=== PATIENT | male | born 1930 | race Caucasian/White ===

== ENCOUNTER 2016-08-15 18:21 | Inpatient (IN) | payer OTHER, MEDICARE ==
[~2016-08-15] VITALS: Ht 180.3 cm; Wt 66.2 kg
[~2016-08-15 18:21] MED LIST: ADVAIR 100/501 DISK IH; AMLODIPINE BESYL5 MG PO; CENTRUM MULTIG80 MCG PO; COZAAR50 MG PO; DOCUSATE SODIU100 MG PO; FLOMAX0.4 MG PO; LO-DOSE ASPIRIN81 M2 PO; NORVASC5 MG PO; TRICOR145 MG PO
[2016-08-15 19:22] LABS: HEMATOCRIT 36.3 % (38.0-50.0); MCH 29.9 PG (29.0-34.0); MCHC 33.1 G/DL (30.0-36.0); MCV 90.5 FL (86-99); MEAN PLAT.VOLUME 10.3 uM^3 (9.0-12.4); PLATELET COUNT 269 K/uL (156-360); RBC DIS.WIDTH-CV 14.6 % (11.8-14.6); RBC DIS.WIDTH-SD 46.8 % (39-53); RED BLOOD COUNT 4.01 M/uL (4.00-5.50); WHITE BLOOD COUNT 9.8 K/uL (4.1-10.2)
[2016-08-15 19:32] LABS: CHLORIDE 104 mEq/L (99-109); SODIUM 141 mEq/L (136-147)
[2016-08-15 19:33] LABS: GLUCOSE 111 mg/dL (70-99)
[2016-08-15 19:35] LABS: ANION GAP 14 MEQ/L (2-14)
[2016-08-15 19:37] LABS: GFR ESTIMATE (CALCULATED) 51 mL/min/
[2016-08-15 19:38] LABS: TROP-I INTERPRETATION NEGATIVE; UREA NITROGEN (BUN) 20 mg/dL (9-23)
[2016-08-15] MEDS ORDERED: AMLODIPINE BESYL5 MG PO (20:12)
[2016-08-15] MEDS ORDERED: LASIX40 MG PO (20:13)
[2016-08-15] MEDS ORDERED: COZAAR25 MG PO (22:52)
[2016-08-15] MEDS ORDERED: LOPRESSOR25 MG PO (22:53)
[2016-08-16 03:29] VITALS: BP 164/81
[2016-08-16 04:58] LABS: CHLORIDE 102 mEq/L (99-109); POTASSIUM 3.7 mEq/L (3.7-5.4); SODIUM 140 mEq/L (136-147)
[2016-08-16 04:59] LABS: GLUCOSE 96 mg/dL (70-99)
[2016-08-16 05:01] LABS: ANION GAP 10 MEQ/L (2-14)
[2016-08-16 05:03] LABS: GFR ESTIMATE (CALCULATED) 51 mL/min/
[2016-08-16 05:04] LABS: UREA NITROGEN (BUN) 21 mg/dL (9-23)
[2016-08-16 05:10] LABS: TROP-I INTERPRETATION NEGATIVE
[2016-08-16 05:31] LABS: HDL CHOLESTEROL 44 MG/DL (Desirable>=40); LDL CHOLESTEROL 67 mg/dL (Desirable<100); NON-HDL CHOLESTEROL 82 mg/dL (Desirable<160); TOTAL CHOLESTEROL 126 mg/dL (Desirable<200); TRIGLYCERIDES 75 MG/DL (Normal: <150)
[2016-08-16 11:32] VITALS: BP 136/68
[2016-08-16 12:39] LABS: TROP-I INTERPRETATION NEGATIVE; TROPONIN-I 0.25 ng/mL (0.0-0.30)
[2016-08-16 16:00] VITALS: BP 131/64
[2016-08-16 19:33] LABS: TROP-I INTERPRETATION NEGATIVE; TROPONIN-I 0.21 ng/mL (0.0-0.30)
[2016-08-16 19:35] VITALS: BP 140/77
[2016-08-16 23:31] VITALS: BP 142/76
[2016-08-17 03:18] LABS: CHLORIDE 100 mEq/L (99-109); POTASSIUM 3.5 mEq/L (3.7-5.4); SODIUM 140 mEq/L (136-147)
[2016-08-17 03:20] LABS: GLUCOSE 90 mg/dL (70-99)
[2016-08-17 03:21] LABS: ANION GAP 9 MEQ/L (2-14)
[2016-08-17 03:24] LABS: GFR ESTIMATE (CALCULATED) 47 mL/min/
[2016-08-17 03:25] LABS: UREA NITROGEN (BUN) 27 mg/dL (9-23)
[2016-08-17 03:31] LABS: TROP-I INTERPRETATION NEGATIVE; TROPONIN-I 0.18 ng/mL (0.0-0.30)
[2016-08-17 03:44] VITALS: BP 139/76
[2016-08-17 07:58] VITALS: BP 159/75
[2016-08-17 11:19] LABS: TROP-I INTERPRETATION NEGATIVE; TROPONIN-I 0.15 ng/mL (0.0-0.30)
[2016-08-17 12:48] LABS: ANTI-NUCLEAR AB SCRN/RFLX(ANA) NONREACTIVE (NONREACTIVE); SCL-70 (SCLERODERMA) ANTIBODY 19 U/mL (0-99)
[2016-08-19 13:49] LABS: Neutrophil Cytoplasmic Aby Negative (Negative)
== END 2016-08-17 13:38 | disposition home or self-care (01) | DRG 292 ==
LOC: EME 18:21 → 4EAST 22:12 → EDOF 22:12 → 4EAST 08-16 03:10
PROVIDERS: Emergency Medicine; Internal Medicine; Internal Medicine Pulmonary Disease
DX: I50.9 Heart failure, unspecified (principal); J90 Pleural effusion, not elsewhere classified; I35.0 Nonrheumatic aortic (valve) stenosis; E78.5 Hyperlipidemia, unspecified; J98.4 Other disorders of lung; I27.2 Other secondary pulmonary hypertension; F17.210 Nicotine dependence, cigarettes, uncomplicated; I10 Essential (primary) hypertension; F10.10 Alcohol abuse, uncomplicated; N40.0 Benign prostatic hyperplasia without lower urinary tract symptoms; R09.02 Hypoxemia; R09.89 Other specified symptoms and signs involving the circulatory and respiratory systems; Z79.82 Long term (current) use of aspirin; Z95.0 Presence of cardiac pacemaker; Z82.49 Family history of ischemic heart disease and other diseases of the circulatory system; Z82.3 Family history of stroke
CPT/HCPCS: 71020; 80048; 80061; 83880; 84484; 85027; 86021 90; 86038; 86235; 86430; 93005; 94002; 94760; 94799; 99281; 99285; J1940

== ENCOUNTER 2016-08-24 10:33 | Inpatient (IN) | payer OTHER, MEDICARE ==
[~2016-08-24] VITALS: Ht 177.8 cm; Wt 68.4 kg
[2016-08-24] VITALS (22 sets, daily range): BP systolic 108–133; BP diastolic 45–83
[~2016-08-24 10:33] MED LIST changes: +COZAAR25 MG PO; +LASIX40 MG PO; +LOPRESSOR25 MG PO
[2016-08-24 11:19] LABS: BASE EXCESS -4.5 mEq/L (-3 to +3); BICARBONATE 17.1 mEq/L (22-26); COMMENTS - BLOOD GASES NAC+; DEVICE NC; O2 FLOW 2 L/MIN; PCO2 23 mm Hg (35-45); PO2 130 mm Hg (80-100); SITE RR; TOTAL RESP RATE 34 resp/min; pH 7.48 (7.35-7.45)
[2016-08-24 12:19] LABS: INTER. NORMALIZED RATIO 1.4; PROTHROMBIN TIME 14.8 (9.2-11.2); PTT 25.5 (25-32)
[2016-08-24 12:24] LABS: CHLORIDE 96 mEq/L (99-109); POTASSIUM 3.7 mEq/L (3.7-5.4); SODIUM 136 mEq/L (136-147)
[2016-08-24 12:26] LABS: GLUCOSE 154 mg/dL (70-99)
[2016-08-24 12:28] LABS: ANION GAP 27 MEQ/L (2-14); TOTAL BILIRUBIN 0.5 mg/dL (0.0-1.0)
[2016-08-24 12:30] LABS: ALKALINE PHOSPHATASE 30 IU/L (3-129); GFR ESTIMATE (CALCULATED) 25 mL/min/
[2016-08-24 12:31] LABS: UREA NITROGEN (BUN) 89 mg/dL (9-23)
[2016-08-24 12:35] LABS: TROP-I INTERPRETATION POSITIVE
[2016-08-24 12:36] LABS: TROPONIN-I 9.67 ng/mL (0.0-0.30)
[2016-08-24 12:49] LABS: EOSINOPHIL (%) 0 % (0-5); HEMATOCRIT 17.3 % (38.0-50.0); IMMATURE GRANULOCYTE (%) 0.4 % (0.0-0.7); IMMATURE GRANULOCYTE COUNT 0.1 K/uL; LYMPHOCYTE COUNT 1.3 K/uL (1.0-2.8); MCH 29.7 PG (29.0-34.0); MCHC 31.8 G/DL (30.0-36.0); MCV 94.1 FL (86-99); MEAN PLAT.VOLUME 12.4 uM^3 (9.0-12.4); MONOCYTE (%) 3.2 % (3-12); MONOCYTE COUNT 0.6 K/uL (0-0.8); NEUTROPHIL (%) 89.6 % (45-76); NEUTROPHIL COUNT 16.8 K/uL (1.8-6.4); PLATELET COUNT 361 K/uL (156-360); RBC DIS.WIDTH-CV 16.4 % (11.8-14.6); RBC DIS.WIDTH-SD 54.5 % (39-53); RED BLOOD COUNT 1.85 M/uL (4.00-5.50); WHITE BLOOD COUNT 18.7 K/uL (4.1-10.2)
[2016-08-24 13:22] LABS: HEMATOLOGY COMMENT 1 SMEAR COMPATIBLE; USER ID TLN
[2016-08-24 17:05] LABS: METH RESISTANT S AUREUS PCR NEGATIVE (NEGATIVE)
[2016-08-24 17:08] LABS: PROBE CHECK PASS; SPECIMEN PROCESSING CONTROL PASS
[2016-08-24 17:44] LABS: MAGNESIUM 2.3 mg/dL (1.3-2.7)
[2016-08-24 17:52] LABS: SALICYLATE < 5.0 MG/DL (15-30)
[2016-08-24 18:06] LABS: TROP-I INTERPRETATION POSITIVE
[2016-08-24 18:13] LABS: TROPONIN-I 17.08 ng/mL (0.0-0.30)
[2016-08-24 18:17] LABS: HEMATOCRIT 20.8 % (38.0-50.0); MCV 90.8 FL (86-99)
[2016-08-24 18:32] LABS: CREATINE KINASE 422 IU/L (1-294); TOTAL CK 422 IU/L (1-294)
[2016-08-25] VITALS (27 sets, daily range): BP systolic 102–135; BP diastolic 41–81
[2016-08-25 04:37] LABS: EOSINOPHIL (%) 0 % (0-5); HEMATOCRIT 26.9 % (38.0-50.0); IMMATURE GRANULOCYTE (%) 0.3 % (0.0-0.7); IMMATURE GRANULOCYTE COUNT 0.5 K/uL; LYMPHOCYTE COUNT 1.2 K/uL (1.0-2.8); MCH 29.9 PG (29.0-34.0); MCHC 35.3 G/DL (30.0-36.0); MONOCYTE (%) 8.5 % (3-12); MONOCYTE COUNT 1.5 K/uL (0-0.8); NEUTROPHIL (%) 84.4 % (45-76); NEUTROPHIL COUNT 14.8 K/uL (1.8-6.4); RBC DIS.WIDTH-CV 15.7 % (11.8-14.6); RBC DIS.WIDTH-SD 44.8 % (39-53); WHITE BLOOD COUNT 17.5 K/uL (4.1-10.2)
[2016-08-25 04:39] LABS: MCV 84.6 FL (86-99); RED BLOOD COUNT 3.18 M/uL (4.00-5.50)
[2016-08-25 04:44] LABS: CHLORIDE 98 mEq/L (99-109); POTASSIUM 3.3 mEq/L (3.7-5.4); SODIUM 138 mEq/L (136-147)
[2016-08-25 04:47] LABS: GLUCOSE 117 mg/dL (70-99)
[2016-08-25 04:48] LABS: ANION GAP 14 MEQ/L (2-14)
[2016-08-25 04:51] LABS: GFR ESTIMATE (CALCULATED) 26 mL/min/; UREA NITROGEN (BUN) 88 mg/dL (9-23)
[2016-08-25 04:53] LABS: CREATINE KINASE 513 IU/L (1-294); TOTAL CK 513 IU/L (1-294)
[2016-08-25 04:56] LABS: TROP-I INTERPRETATION POSITIVE
[2016-08-25 04:59] LABS: CK-MB 39.2 ng/mL (0.0-4.9); TROPONIN-I 35.62 ng/mL (0.0-0.30)
[2016-08-25 05:38] LABS: PLATELET COUNT UNABLE TO REPORT K/uL (156-360); USER ID SLU
[2016-08-25 11:34] LABS: HEMATOCRIT 27.2 % (38.0-50.0); MCV 84.7 FL (86-99)
[2016-08-25 11:55] LABS: CK-MB 32.2 ng/mL (0.0-4.9)
[2016-08-25 11:56] LABS: TROP-I INTERPRETATION POSITIVE; TROPONIN-I 32.32 ng/mL (0.0-0.30)
[2016-08-25 13:19] LABS: CREATINE KINASE 339 IU/L (1-294); TOTAL CK 339 IU/L (1-294)
[2016-08-25 18:38] LABS: HEMATOCRIT 29.3 % (38.0-50.0); MCV 86.9 FL (86-99)
[2016-08-26] VITALS (13 sets, daily range): BP systolic 100–126; BP diastolic 56–78
[2016-08-26 05:47] LABS: HEMATOCRIT 28.1 % (38.0-50.0); MCH 29.9 PG (29.0-34.0); MCHC 34.2 G/DL (30.0-36.0); MCV 87.5 FL (86-99); NRBC (%) 0.4 /100 WBC (0-0); RBC DIS.WIDTH-CV 17.2 % (11.8-14.6); RBC DIS.WIDTH-SD 51.7 % (39-53); RED BLOOD COUNT 3.21 M/uL (4.00-5.50); WHITE BLOOD COUNT 21.4 K/uL (4.1-10.2)
[2016-08-26 06:11] LABS: ANION GAP 13 MEQ/L (2-14); CHLORIDE 99 MEQ/L (99-109); GFR ESTIMATE (CALCULATED) 32 mL/min/; GLUCOSE 110 mg/dL (70-99); MAGNESIUM 2.3 mg/dl (1.3-2.7); POTASSIUM 3.7 MEQ/L (3.7-5.4); SAMPLE HEMOLYSIS CHECK 0; SAMPLE ICTERIC CHECK 0; SAMPLE LIPEMIA CHECK 0; SODIUM 141 MEQ/L (136-147); UREA NITROGEN (BUN) 71 mg/dL (9-23)
[2016-08-26 07:47] LABS: EOSINOPHIL (%) 0 % (0-5); HEMATOLOGY COMMENT 1 SMEAR COMPATIBLE; IMMATURE GRANULOCYTE (%) 0.4 % (0.0-0.7); IMMATURE GRANULOCYTE COUNT 0.1 K/uL; LYMPHOCYTE COUNT 1.7 K/uL (1.0-2.8); MEAN PLAT.VOLUME 11.7 uM^3 (9.0-12.4); MONOCYTE (%) 6.9 % (3-12); MONOCYTE COUNT 1.5 K/uL (0-0.8); NEUTROPHIL (%) 84.9 % (45-76); NEUTROPHIL COUNT 18.2 K/uL (1.8-6.4); PLAT.SUFFICIENCY ADEQUATE; PLATELET COUNT 224 K/uL (156-360)
[2016-08-27] VITALS (8 sets, daily range): BP systolic 108–125; BP diastolic 62–82
[2016-08-27 06:06] LABS: HEMATOCRIT 26.8 % (38.0-50.0); MCH 30.6 PG (29.0-34.0); MCV 90.2 FL (86-99); MEAN PLAT.VOLUME 11.6 uM^3 (9.0-12.4); NRBC (%) 0.2 /100 WBC (0-0); PLATELET COUNT 196 K/uL (156-360); RBC DIS.WIDTH-CV 17.7 % (11.8-14.6); RBC DIS.WIDTH-SD 52.3 % (39-53); RED BLOOD COUNT 2.97 M/uL (4.00-5.50); WHITE BLOOD COUNT 17.2 K/uL (4.1-10.2)
[2016-08-27 06:28] LABS: EOSINOPHIL (%) 0.1 % (0-5); IMMATURE GRANULOCYTE (%) 0.3 % (0.0-0.7); IMMATURE GRANULOCYTE COUNT 0.1 K/uL; LYMPHOCYTE COUNT 1.2 K/uL (1.0-2.8); MONOCYTE (%) 6.1 % (3-12); MONOCYTE COUNT 1.1 K/uL (0-0.8); NEUTROPHIL (%) 86.2 % (45-76); NEUTROPHIL COUNT 14.8 K/uL (1.8-6.4)
[2016-08-27 06:40] LABS: ANION GAP 11 MEQ/L (2-14); CHLORIDE 98 MEQ/L (99-109); GFR ESTIMATE (CALCULATED) 36 mL/min/; GLUCOSE 94 mg/dL (70-99); MAGNESIUM 2.3 mg/dl (1.3-2.7); POTASSIUM 3.7 MEQ/L (3.7-5.4); SAMPLE HEMOLYSIS CHECK 0; SAMPLE ICTERIC CHECK 0; SAMPLE LIPEMIA CHECK 0; SODIUM 135 MEQ/L (136-147); UREA NITROGEN (BUN) 60 mg/dL (9-23)
[2016-08-28] VITALS (7 sets, daily range): BP systolic 103–130; BP diastolic 56–65
[2016-08-28 06:33] LABS: HEMATOCRIT 25.3 % (38.0-50.0); MCH 29.9 PG (29.0-34.0); MCHC 33.2 G/DL (30.0-36.0); MEAN PLAT.VOLUME 11.5 uM^3 (9.0-12.4); NRBC (%) 0.2 /100 WBC (0-0); PLATELET COUNT 198 K/uL (156-360); RBC DIS.WIDTH-SD 51.9 % (39-53); RED BLOOD COUNT 2.81 M/uL (4.00-5.50); WHITE BLOOD COUNT 15.8 K/uL (4.1-10.2)
[2016-08-28 06:40] LABS: EOSINOPHIL (%) 0.2 % (0-5); IMMATURE GRANULOCYTE (%) 0.3 % (0.0-0.7); IMMATURE GRANULOCYTE COUNT 0.1 K/uL; LYMPHOCYTE COUNT 1.1 K/uL (1.0-2.8); MONOCYTE (%) 7.5 % (3-12); MONOCYTE COUNT 1.2 K/uL (0-0.8); NEUTROPHIL (%) 84.9 % (45-76); NEUTROPHIL COUNT 13.4 K/uL (1.8-6.4)
[2016-08-28 07:07] LABS: ANION GAP 10 MEQ/L (2-14); CHLORIDE 97 MEQ/L (99-109); GFR ESTIMATE (CALCULATED) 34 mL/min/; GLUCOSE 105 mg/dL (70-99); MAGNESIUM 2.2 mg/dl (1.3-2.7); POTASSIUM 4.1 MEQ/L (3.7-5.4); SAMPLE HEMOLYSIS CHECK 0; SAMPLE ICTERIC CHECK 0; SAMPLE LIPEMIA CHECK 0; SODIUM 133 MEQ/L (136-147); UREA NITROGEN (BUN) 60 mg/dL (9-23)
[2016-08-28 19:09] LABS: HEMATOCRIT 29.4 % (38.0-50.0)
[2016-08-29 04:00] VITALS: BP 122/57
[2016-08-29 06:54] LABS: HEMATOCRIT 26.6 % (38.0-50.0); MCH 30.1 PG (29.0-34.0); MCHC 33.1 G/DL (30.0-36.0); MCV 91.1 FL (86-99); MEAN PLAT.VOLUME 10.8 uM^3 (9.0-12.4); NRBC (%) 0.1 /100 WBC (0-0); PLATELET COUNT 187 K/uL (156-360); RBC DIS.WIDTH-SD 53.1 % (39-53); RED BLOOD COUNT 2.92 M/uL (4.00-5.50); WHITE BLOOD COUNT 16.7 K/uL (4.1-10.2)
[2016-08-29 06:58] LABS: EOSINOPHIL (%) 0.2 % (0-5); IMMATURE GRANULOCYTE (%) 0.4 % (0.0-0.7); IMMATURE GRANULOCYTE COUNT 0.1 K/uL; LYMPHOCYTE COUNT 1.3 K/uL (1.0-2.8); MONOCYTE (%) 5.8 % (3-12); NEUTROPHIL (%) 85.8 % (45-76); NEUTROPHIL COUNT 14.4 K/uL (1.8-6.4)
[2016-08-29 07:19] LABS: ANION GAP 10 MEQ/L (2-14); CHLORIDE 98 MEQ/L (99-109); GFR ESTIMATE (CALCULATED) 36 mL/min/; GLUCOSE 96 mg/dL (70-99); MAGNESIUM 2.2 mg/dl (1.3-2.7); POTASSIUM 4.4 MEQ/L (3.7-5.4); SAMPLE HEMOLYSIS CHECK 0; SAMPLE ICTERIC CHECK 0; SAMPLE LIPEMIA CHECK 0; SODIUM 134 MEQ/L (136-147); UREA NITROGEN (BUN) 54 mg/dL (9-23)
[2016-08-29 07:30] VITALS: BP 117/59
[2016-08-29 07:43] LABS: HEMATOLOGY COMMENT 1 SMEAR COMPATIBLE
[2016-08-29 11:44] VITALS: BP 104/54
[2016-08-29 13:19] LABS: TROP-I INTERPRETATION POSITIVE
[2016-08-29 13:29] LABS: TROPONIN-I 4.93 ng/mL (0.0-0.30)
[2016-08-29 14:42] LABS: CREATINE KINASE 45 IU/L (1-294); TOTAL CK 45 IU/L (1-294)
[2016-08-29 15:10] LABS: CK-MB 1.4 ng/mL (0.0-4.9)
[2016-08-29 15:38] VITALS: BP 115/66
[2016-08-29 19:38] VITALS: BP 126/73
[2016-08-29 20:53] LABS: CREATINE KINASE 42 IU/L (1-294); TOTAL CK 42 IU/L (1-294)
[2016-08-29 20:58] LABS: TROP-I INTERPRETATION POSITIVE
[2016-08-29 21:06] LABS: TROPONIN-I 4.59 ng/mL (0.0-0.30)
[2016-08-29 21:52] LABS: CK-MB 1.3 ng/mL (0.0-4.9)
[2016-08-29 23:05] VITALS: BP 109/58
[2016-08-30 04:34] VITALS: BP 119/60
[2016-08-30 06:54] LABS: HEMATOCRIT 27.2 % (38.0-50.0); MCH 30.2 PG (29.0-34.0); MCHC 33.1 G/DL (30.0-36.0); MCV 91.3 FL (86-99); MEAN PLAT.VOLUME 11.1 uM^3 (9.0-12.4); NRBC (%) 0.1 /100 WBC (0-0); PLATELET COUNT 240 K/uL (156-360); RBC DIS.WIDTH-CV 17.5 % (11.8-14.6); RBC DIS.WIDTH-SD 54.7 % (39-53); RED BLOOD COUNT 2.98 M/uL (4.00-5.50); WHITE BLOOD COUNT 16.7 K/uL (4.1-10.2)
[2016-08-30 07:16] LABS: EOSINOPHIL COUNT 0.2 K/uL (0-0.3); IMMATURE GRANULOCYTE (%) 0.3 % (0.0-0.7); IMMATURE GRANULOCYTE COUNT 0.1 K/uL; MONOCYTE (%) 5.4 % (3-12); MONOCYTE COUNT 0.9 K/uL (0-0.8); NEUTROPHIL COUNT 14.6 K/uL (1.8-6.4)
[2016-08-30 07:20] LABS: ANION GAP 11 MEQ/L (2-14); CHLORIDE 96 MEQ/L (99-109); GFR ESTIMATE (CALCULATED) 38 mL/min/; GLUCOSE 89 mg/dL (70-99); MAGNESIUM 2.2 mg/dl (1.3-2.7); SAMPLE HEMOLYSIS CHECK 0; SAMPLE ICTERIC CHECK 0; SAMPLE LIPEMIA CHECK 0; SODIUM 134 MEQ/L (136-147); UREA NITROGEN (BUN) 49 mg/dL (9-23)
[2016-08-30 08:42] VITALS: BP 143/73
[2016-08-30 12:26] VITALS: BP 133/60
[2016-08-30 17:02] VITALS: BP 130/72
[2016-08-30 19:51] VITALS: BP 118/69
[2016-08-30 23:34] VITALS: BP 105/59
[2016-08-31 05:04] VITALS: BP 130/69
[2016-08-31 06:48] LABS: HEMATOCRIT 27.3 % (38.0-50.0); MCH 29.7 PG (29.0-34.0); MCHC 32.6 G/DL (30.0-36.0); MEAN PLAT.VOLUME 10.5 uM^3 (9.0-12.4); PLATELET COUNT 244 K/uL (156-360); RBC DIS.WIDTH-SD 53.1 % (39-53); WHITE BLOOD COUNT 13.8 K/uL (4.1-10.2)
[2016-08-31 07:12] LABS: ANION GAP 10 MEQ/L (2-14); CHLORIDE 99 MEQ/L (99-109); GFR ESTIMATE (CALCULATED) 41 mL/min/; GLUCOSE 89 mg/dL (70-99); MAGNESIUM 2.1 mg/dl (1.3-2.7); POTASSIUM 4.1 MEQ/L (3.7-5.4); SAMPLE HEMOLYSIS CHECK 0; SAMPLE ICTERIC CHECK 0; SAMPLE LIPEMIA CHECK 0; SODIUM 136 MEQ/L (136-147); UREA NITROGEN (BUN) 42 mg/dL (9-23)
[2016-08-31 07:40] VITALS: BP 139/68
[2016-08-31 07:45] LABS: EOSINOPHIL (%) 2.2 % (0-5); EOSINOPHIL COUNT 0.3 K/uL (0-0.3); IMMATURE GRANULOCYTE (%) 0.3 % (0.0-0.7); LYMPHOCYTE COUNT 1.1 K/uL (1.0-2.8); MONOCYTE (%) 3.9 % (3-12); MONOCYTE COUNT 0.5 K/uL (0-0.8); NEUTROPHIL (%) 85.6 % (45-76); NEUTROPHIL COUNT 11.8 K/uL (1.8-6.4)
[2016-08-31 11:48] VITALS: BP 105/62
[2016-08-31 16:32] VITALS: BP 108/56
[2016-08-31 21:00] VITALS: BP 131/93
[2016-08-31 23:35] VITALS: BP 132/82
[2016-09-01 06:42] LABS: HEMATOCRIT 29.3 % (38.0-50.0); MCH 29.4 PG (29.0-34.0); MCHC 32.1 G/DL (30.0-36.0); MCV 91.6 FL (86-99); MEAN PLAT.VOLUME 10.5 uM^3 (9.0-12.4); PLATELET COUNT 283 K/uL (156-360); WHITE BLOOD COUNT 12.8 K/uL (4.1-10.2)
[2016-09-01 06:48] LABS: EOSINOPHIL (%) 2.5 % (0-5); EOSINOPHIL COUNT 0.3 K/uL (0-0.3); IMMATURE GRANULOCYTE (%) 0.5 % (0.0-0.7); IMMATURE GRANULOCYTE COUNT 0.1 K/uL; MONOCYTE (%) 5.2 % (3-12); MONOCYTE COUNT 0.7 K/uL (0-0.8); NEUTROPHIL (%) 84.2 % (45-76); NEUTROPHIL COUNT 10.7 K/uL (1.8-6.4)
[2016-09-01 07:11] LABS: ANION GAP 10 MEQ/L (2-14); CHLORIDE 100 MEQ/L (99-109); GFR ESTIMATE (CALCULATED) 44 mL/min/; GLUCOSE 91 mg/dL (70-99); MAGNESIUM 2.1 mg/dl (1.3-2.7); POTASSIUM 4.5 MEQ/L (3.7-5.4); SAMPLE HEMOLYSIS CHECK 0; SAMPLE ICTERIC CHECK 0; SAMPLE LIPEMIA CHECK 0; SODIUM 137 MEQ/L (136-147); UREA NITROGEN (BUN) 39 mg/dL (9-23)
[2016-09-01 08:00] VITALS: BP 140/67
[2016-09-01 11:00] VITALS: BP 113/71
[2016-09-01 16:15] VITALS: BP 136/66
[2016-09-01 19:49] VITALS: BP 130/65
[2016-09-01 22:50] VITALS: BP 119/65
[2016-09-02 03:42] VITALS: BP 141/67
[2016-09-02 06:15] LABS: HEMATOCRIT 30.3 % (38.0-50.0); MCH 29.9 PG (29.0-34.0); MCHC 32.3 G/DL (30.0-36.0); MCV 92.4 FL (86-99); MEAN PLAT.VOLUME 10.7 uM^3 (9.0-12.4); PLATELET COUNT 289 K/uL (156-360); RBC DIS.WIDTH-CV 16.9 % (11.8-14.6); RBC DIS.WIDTH-SD 53.7 % (39-53); RED BLOOD COUNT 3.28 M/uL (4.00-5.50); WHITE BLOOD COUNT 10.6 K/uL (4.1-10.2)
[2016-09-02 06:26] LABS: EOSINOPHIL (%) 2.7 % (0-5); EOSINOPHIL COUNT 0.3 K/uL (0-0.3); IMMATURE GRANULOCYTE (%) 0.5 % (0.0-0.7); IMMATURE GRANULOCYTE COUNT 0.1 K/uL; LYMPHOCYTE COUNT 0.8 K/uL (1.0-2.8); MONOCYTE (%) 4.5 % (3-12); MONOCYTE COUNT 0.5 K/uL (0-0.8); NEUTROPHIL (%) 84.4 % (45-76)
[2016-09-02 06:40] LABS: ANION GAP 8 MEQ/L (2-14); CHLORIDE 100 MEQ/L (99-109); GFR ESTIMATE (CALCULATED) 47 mL/min/; GLUCOSE 91 mg/dL (70-99); MAGNESIUM 2.1 mg/dl (1.3-2.7); POTASSIUM 4.2 MEQ/L (3.7-5.4); SAMPLE HEMOLYSIS CHECK 0; SAMPLE ICTERIC CHECK 0; SAMPLE LIPEMIA CHECK 0; SODIUM 136 MEQ/L (136-147); UREA NITROGEN (BUN) 38 mg/dL (9-23)
[2016-09-02 08:05] VITALS: BP 130/85
[2016-09-02] MEDS ORDERED: PANTOPRAZOLE SO40 MG PO (10:14)
[2016-09-02] MEDS ORDERED: CLEOCIN150 MG PO (10:49)
== END 2016-09-02 12:55 | disposition home or self-care (01) | DRG 377 ==
LOC: EME → EDBD 10:33 → 4EAST 13:46 → EDOF 13:46 → 4WEST 13:46 → 4EAST 08-27 18:19
PROVIDERS: Emergency Medicine; Internal Medicine; Internal Medicine Gastroenterology; Internal Medicine Nephrology
PROC: 30233N1 Transfusion of Nonautologous Red Blood Cells into Peripheral Vein, Percutaneous Approach (ICD-10-PCS; principal; 2016-08-24)
DX: K92.2 Gastrointestinal hemorrhage, unspecified (principal); I21.4 Non-ST elevation (NSTEMI) myocardial infarction; D62 Acute posthemorrhagic anemia; I44.2 Atrioventricular block, complete; E87.2 Acidosis; N17.9 Acute kidney failure, unspecified; I24.9 Acute ischemic heart disease, unspecified; E78.5 Hyperlipidemia, unspecified; I27.2 Other secondary pulmonary hypertension; K92.1 Melena; I50.9 Heart failure, unspecified; F17.210 Nicotine dependence, cigarettes, uncomplicated; I10 Essential (primary) hypertension; I25.10 Atherosclerotic heart disease of native coronary artery without angina pectoris; I80.8 Phlebitis and thrombophlebitis of other sites; Z95.0 Presence of cardiac pacemaker; I35.0 Nonrheumatic aortic (valve) stenosis
CPT/HCPCS: 36600; 71020; 80048; 80053; 82550; 82550 91; 82553; 82803; 83605; 83735; 84100; 84145 90; 84484; 85014; 85018; 85025; 85610; 85730; 86850; 86900; 86901; 86920; 87641; 93005; 93971; 94640; 94640 76; 94799; 97530 GP; 99202; 99281; 99285; C9113; G0480; J1940; J3480; J7050; J7644; P9016